=== PATIENT | female | born 1985 | race Hispanic/Latino ===

== ENCOUNTER → 2020-10-18 | Outpatient (CLI) | payer OTHER ==
[~2020-10-18] MED LIST: COVID-19 VACC, MRNA(MODERNA)/PF 100 MCG/0.5 ML VIAL IM ONE
== END ==
LOC: VACCPMC 16:30
DX: Z23 Encounter for immunization (principal); Z20.822 Contact with and (suspected) exposure to COVID-19

== ENCOUNTER → 2020-11-15 | Outpatient (CLI) | payer OTHER | END | DRG 951 | LOC: VACCPMC 09:37 | DX: Z23 Encounter for immunization (principal); Z20.822 Contact with and (suspected) exposure to COVID-19 | CPT/HCPCS: 0012A; 91301 ==